=== PATIENT | male | born 1995 | race Caucasian/White ===

== ENCOUNTER 2020-06-23 12:09 | Emergency (ER) | payer MEDICAID ==
[~2020-06-23] VITALS: Ht 180.3 cm; Wt 86.2 kg
[2020-06-23 12:21] VITALS: BP_SYST 154
--- NOTE | 2020-06-23 12:27 | NUR ---
Patient to ER bed 02 to gown for evaluation. Side rails up.
--- NOTE | 2020-06-23 12:30 | NUR ---
Pt brought from home, A&Ox4, pt presents to ER with L lower back pain 04/16, pt states she fell downstairs , also c/o persistent burping and bloating of stomach, skin pink and warm, cap refill <3.
--- NOTE | 2020-06-23 12:31 | NUR ---
Dr Ellington, L evaluating patient at bedside
[2020-06-23] MEDS ORDERED: CYCLOBENZAPRINE HCL 10 MG TABLET (FLEXERIL) PO ONE (12:45)
[2020-06-23] MEDS ORDERED: IBUPROFEN 800 MG TABLET PO ONE (12:45)
[2020-06-23 13:21] VITALS: BP_SYST 154
--- NOTE | 2020-06-23 13:21 | NUR ---
Patient given written and verbal discharge instructions and verbalizes understanding. ER MD discussed with patient the results and treatment provided. Patient in stable condition. ID arm band removed. Rx of motrin and flexeril given. Patient educated on pain management and to follow up with PMD. Pain Scale 2/10. Opportunity for questions provided and answered. Medication side effect fact sheet provided.
== END 2020-06-23 13:21 | disposition home or self-care (01) ==
LOC: SED 12:09
DX: M54.5 Low back pain (principal)
CPT/HCPCS: 72110; 72220-TC; 99284

== ENCOUNTER 2020-07-06 02:46 | Emergency (ER) | payer MEDICAID ==
[~2020-07-06] VITALS: Ht 175.3 cm; Wt 86.2 kg
[2020-07-06 02:50] VITALS: BP_SYST 147
[2020-07-06] MEDS ORDERED: KETOROLAC TROMETHAMINE 60 MG/2 ML VIAL IM ONE ×2 (03:15→03:28)
[2020-07-06] MEDS ORDERED: MORPHINE 4 MG/ML INJ. SYRINGE IM ONE (04:00)
[2020-07-06] MEDS ORDERED: PROPOFOL 200MG/ 20ML VIAL (DIPRIVAN) IV ONE (04:30)
[2020-07-06] MEDS ORDERED: PROPOFOL DRIP 0 ML IV ONE (04:49)
[2020-07-06 05:30] VITALS: BP_SYST 128
== END 2020-07-06 05:30 | disposition home or self-care (01) ==
LOC: SED 02:46
DX: S43.024A Posterior dislocation of right humerus, initial encounter (principal); S42.201A Unspecified fracture of upper end of right humerus, initial encounter for closed fracture; Y04.0XXA Assault by unarmed brawl or fight, initial encounter; Y93.89 Activity, other specified; Y92.89 Other specified places as the place of occurrence of the external cause; Y99.8 Other external cause status
CPT/HCPCS: 23650; 73030; 96372; 99152; 99285; J1885; J2270; J2704

== ENCOUNTER 2022-01-26 12:46 | Emergency (ER) | payer MEDICAID ==
[~2022-01-26] VITALS: Ht 180.3 cm; Wt 86.2 kg
[2022-01-26 13:10] VITALS: BP_SYST 164
--- NOTE | 2022-01-26 13:20 | NUR ---
Patient to ER bed 04 to gown for evaluation. Side rails up.
--- NOTE | 2022-01-26 13:30 | NUR ---
pt. came in byself with c/o low back pain 7/10 on pain scale, pt. has chronic back pain from a fall in 04/2022 that resulted in bulging disc but day to day pain is ussually managable and does not require meds.
--- NOTE | 2022-01-26 14:12 | NUR ---
ER at bedside examining patient.
[2022-01-26] MEDS ORDERED: NAPR-1172 PO (15:06)
[2022-01-26] MEDS ORDERED: CYCL10TA24 PO (15:06)
[2022-01-26] MEDS ORDERED: KETOROLAC TROMETHAMINE 60 MG/2 ML VIAL IM ONE (15:15)
--- NOTE | 2022-01-26 15:18 | NUR ---
IM toradol given for pain relief prior to discharge, pt. has prescription for pain medication at home
[2022-01-26 15:25] VITALS: BP_SYST 157
--- NOTE | 2022-01-26 15:26 | NUR ---
Patient given written and verbal discharge instructions and verbalizes understanding. ER Dr. Mullen discussed with patient the results and treatment provided. Patient in stable condition. ID arm band removed. Rx of flexeril and naproxen given. Patient educated on pain management and to follow up with PMD. Pain Scale 9. Opportunity for questions provided and answered. Medication side effect fact sheet provided.
== END 2022-01-26 15:26 | disposition home or self-care (01) ==
LOC: SED 12:46
DX: G89.29 Other chronic pain (principal); M54.50 Low back pain, unspecified
CPT/HCPCS: 96372; 99283; J1885

== ENCOUNTER 2022-09-23 15:46 | Emergency (ER) | payer MEDICAID ==
[~2022-09-23] VITALS: Ht 177.8 cm; Wt 83.9 kg
[~2022-09-23 15:46] MED LIST: CYCL10TA24 PO; NAPR-1172 PO
[2022-09-23 15:58] VITALS: BP_SYST 130
--- NOTE | 2022-09-23 16:02 | NUR ---
Patient to ER bed 07 to gown for evaluation. Side rails up.
[2022-09-23] MEDS ORDERED: PSEU30TA36 PO (16:07)
[2022-09-23] MEDS ORDERED: IBUP-1969 PO (16:07)
--- NOTE | 2022-09-23 16:11 | NUR ---
BIBS WITH C/C OF BACK PAIN AFTER BENDING OVER. 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 PT CURRENTLY UNDER PHYSICAL THERAPY, REPORTS ABLE TO BEND OVER AT WAIST COMPLETELY BEFORE INJURY BUT NOW ONLY ABLE TO BEND OVER 50% WITHOUT DISCOMFORT. REPORTS PAIN 05/16 CURRENTLY, PT TOOK NORCO 10 4-5 HOURS AGO WITH MINIMAL RELIEF.
--- NOTE | 2022-09-23 16:14 | NUR ---
ER at bedside examining patient.
[2022-09-23] MEDS ORDERED: HYDR-3917 PO (16:32)
[2022-09-23 16:41] VITALS: BP_SYST 132
--- NOTE | 2022-09-23 16:43 | NUR ---
Pt cleared for DC by Dr. Anaya. Rx sent to pt's pharmacy. Pt verbalized understanding of DC instructions. Pt ambulated out of ED in stable condition.
== END 2022-09-23 16:43 | disposition home or self-care (01) ==
LOC: SED 15:46
DX: S33.5XXA Sprain of ligaments of lumbar spine, initial encounter (principal); Z79.899 Other long term (current) drug therapy; X50.0XXA Overexertion from strenuous movement or load, initial encounter; Y93.89 Activity, other specified; Y92.89 Other specified places as the place of occurrence of the external cause; Y99.8 Other external cause status
CPT/HCPCS: 99283

== ENCOUNTER 2023-08-25 07:41 | Day surgery (SDC) | payer MEDICAID ==
[~2023-08-25] VITALS: Ht 152.4 cm; Wt 77.1 kg
[~2023-08-25 07:41] MED LIST changes: +HYDR-3917 PO; +IBUP-1969 PO
[2023-08-25] MEDS ORDERED: MEPERIDINE 100 MG INJ. 100 MG/ML VIAL ONE (08:08)
[2023-08-25] MEDS ORDERED: MIDAZOLAM HCL 5 MG/5 ML VIAL ONE (08:08)
[2023-08-25 09:15] VITALS: O2SAT 96
[2023-08-25 16:54] VITALS: BP_SYST 139; PULSE 77; RESP 14
== END 2023-08-25 10:56 | disposition home or self-care (01) ==
LOC: SDS 07:41 → SMU 07:43 → SDS 10:56
PROVIDERS: ATTEND Internal Medicine Gastroenterology
DX: K21.9 Gastro-esophageal reflux disease without esophagitis (principal); R10.13 Epigastric pain; K29.50 Unspecified chronic gastritis without bleeding; F32.A Depression, unspecified; F12.10 Cannabis abuse, uncomplicated; Z79.899 Other long term (current) drug therapy
CPT/HCPCS: 43239; 99152; 87081; 36415; 88305; 88312; 88313; G0378; J2250; J2175